=== PATIENT | male | born 1980 | race Caucasian/White ===

== ENCOUNTER 2016-06-02 12:44 | Emergency (ER) | payer BC, OTHER ==
[~2016-06-02] VITALS: Ht 180.3 cm; Wt 71.5 kg
[2016-06-02 12:48] VITALS: BP 116/71; PULSE 120; TEMP 36.5; O2SAT 96; Ht 180.3 cm; Wt 71.5 kg
[2016-06-02] MEDS ORDERED: PENI-82 PO (13:05)
[2016-06-02] MEDS ORDERED: OXYC-57 PO (13:05)
--- NOTE | 2016-06-02 13:06 | EMERGENCY ROOM VISIT NOTE ---
ED Visit Note First contact with patient: 12:52 CHIEF COMPLAINT: Pain in mouth HISTORY OF PRESENT ILLNESS: This 36-year-old male patient presented to the emergency department ambulatory with pain in the mouth for the past 3 days. The patient states that he has a bump between the left lower teeth and his tongue which is painful to touch. He rates the discomfort an 8/10. He states that he has had cavities in that area and is unsure if this is due to a cavity. He does not have a dentist. He has been taking ibuprofen at home without relief of the pain. He denies any difficulty swallowing or difficulty breathing. Denies facial swelling or fever. The patient denies any discharge from the mouth. REVIEW OF SYSTEMS: A 6 system review of systems was completed with positives and pertinent negatives listed in the HPI. ALLERGIES: No known drug allergies MEDICATIONS: No chronic medications PMH: No significant past medical history. SOCIAL HISTORY: The patient lives locally with family. He is a former smoker. PHYSICAL EXAM: Vitals are noted on the nurse's note and reviewed by myself. Vital signs stable. Temperature 36.5C orally. GENERAL: This is a 36-year-old male, in no acute distress, nondiaphoretic, well-developed well-nourished. Mouth: There is minimal swelling of the gums surrounding tooth 15. The gums are extremely tender to touch. No tenderness of the floor of the mouth. There is no fluctuance or evidence of abscess. The remainder of the pharynx and tonsils are without erythema, edema, or exudate. The airway is patent. There is no facial swelling, cervical or submandibular lymphadenopathy. The patient appears uncomfortable and in pain. The patient has overall average dental hygiene. EARS: External auditory canals clear, tympanic membranes pearly coley without erythema or effusion bilaterally. ED COURSE: The patient was evaluated as above. His pain seems to be dental in nature. He will be placed on penicillin and given a short course of pain medication. There is no tenderness of the floor of the mouth to suggest Stephen angina. The [place] prescription drug monitoring program was queried and no red flags were identified. The patient will return for any worsening or new/ concerning symptoms. He verbalized understanding and was discharged home in good condition. DIAGNOSIS: Dentalgia Problem List Medical Problems: (1) Kidney stones Status: Resolved (2) VSD (ventricular septal defect) Status: Resolved Current/Historical Medications Scheduled Penicillin V Potassium (Veetids), 500 MG PO QID Scheduled PRN Oxycodone/Acetaminophen 5MG/325MG (Percocet 5MG/325MG), 1-2 TABS PO Q4H PRN for Pain Allergies Coded Allergies: No Known Allergies (Unverified , 04/19/14) Vital Signs Date Time Temp Pulse Resp B/P Pulse Ox O2 Delivery O2 Flow Rate FiO2 06/02/16 12:48 36.5 120 20 116/71 96 Room Air Departure Information Impression Primary Impression: Pain, dental Dispostion Home / Self-Care Condition GOOD Prescriptions Oxycodone/Acetaminophen 5MG/325MG (PERCOCET 5MG/325MG) Tab 1-2 TABS PO Q4H Y for Pain, #15 TAB For Initial Treatment Prov: Aislinn Ricci PA-C 06/02/16 Penicillin V Potassium (Veetids) 500 Mg Tab 500 MG PO QID for 10 Days, #40 TAB Prov: Aislinn Ricci PA-C 06/02/16 Referrals Remington Waller DO (PCP) Patient Instructions My [facility] Additional Instructions You have been treated in the Emergency Department for Dental Pain. You have been prescribed Percocet to be used for pain control. This is a narcotic medication. You cannot drive or consume alcohol while on this medicine. This medicine should only be used for pain that cannot be controlled with zmjn-cow-jdrnocx pain medicines. You were prescribed penicillin to be taken as prescribed. This is an antibiotic. All antibiotics have the potential to cause diarrhea. Stop this medication and contact a medical provider if you were to develop any significant adverse side effects including: wheezing, shortness of breath, passing out, vomiting, or a diffuse rash. Always take antibiotics as directed and COMPLETE the ENTIRE course regardless of the improvement of your symptoms. For pain control, you can use the following bvlg-dfd-kuduosn medicines (if >12 yo): - Regular strength (325mg/tab) Tylenol (acetaminophen) 2 tabs every 4-6 hours as needed. Do not exceed 12 tablets in a 24 hour period. Avoid taking more than 4 grams (4000 mg) of Tylenol per day. This includes any other sources of acetaminophen you may take on a regular basis. - Regular strength (200 mg/tab) Advil (ibuprofen) 1-2 tabs every 4-6 hours as needed. Do not exceed a dose of 3200 mg per day. Refrain from smoking cigarettes or using chewing tobacco until you have been evaluated by your dentist. Keeping beverages lukewarm and consuming soft foods can decrease your pain. Warm compresses over the affected area may offer some relief. You MUST seek evaluation of your dental pain by a dentist following your visit to the Emergency Department. The Emergency Department is not capable of treating dental issues long-term. You should call your dentist as soon as possible to make an appointment for evaluation of your dental pain. Return to the emergency department if you develop the following symptoms despite treatment course outlined above: fever, intractable pain, increased redness, difficulty opening your mouth, swelling, or purulent discharge.
== END 2016-06-02 13:13 | disposition home or self-care (01) ==
LOC: C.EDB 12:45 → C.EDD 13:13
DX: K08.89 Other specified disorders of teeth and supporting structures (principal)

== ENCOUNTER 2016-11-22 08:21 | Emergency (ER) | payer OTHER ==
[~2016-11-22] VITALS: Ht 180.3 cm; Wt 74.1 kg
[~2016-11-22 08:21] MED LIST changes: -ACET-1311 PO; -BUPR150T5 PO; -HYDR-5688 PO; -KLN1X PO; -PENI500T2 PO
[2016-11-22 08:26] VITALS: TEMP 36.6; Ht 180.3 cm; Wt 74.1 kg
[2016-11-22] MEDS ORDERED: ACET-1311 PO (09:11)
[2016-11-22] MEDS ORDERED: KLN1X PO (09:11)
[2016-11-22] MEDS ORDERED: BUPR150T5 PO (09:11)
[2016-11-22] MEDS ORDERED: HYDR-5688 PO (09:57)
[2016-11-22] MEDS ORDERED: PENI500T2 PO (09:57)
--- NOTE | 2016-11-22 09:58 | EMERGENCY ROOM VISIT NOTE ---
ED Visit Note First contact with patient: 08:44 CHIEF COMPLAINT: Right lower jaw line pain 4-5 days HISTORY OF PRESENT ILLNESS: Patient is a 36-year-old white male who presents the emergency department for evaluation of pain along the inner aspect of his right lower jaw line. His symptoms started about 4 or 5 days ago. He notes a tender lump, which appears to be the source of his symptoms. He has tried using bkab-rxf-lkyuldm medications including acetaminophen and ibuprofen without relief. He denies any blood, pus or foul tasting fluid in his mouth. He is status post wisdom tooth extraction. He last saw a dentist about a year ago. He has had problems with his teeth in the past and has been seen here before for dental pain. He rates his discomfort and 9/10. Denies facial swelling or fever. The patient is status post wisdom teeth extraction. REVIEW OF SYSTEMS: Review of systems as per HPI. All other systems reviewed were negative. At least 6 systems reviewed. PMH: Electronic medical records are reviewed and summarized as above/below. See Problem List. SOCIAL HISTORY: Patient lives at home. Nonsmoker. He is employed PHYSICAL EXAM: Vital Signs: Reviewed Nurse's notes. CONSTITUTIONAL: Patient is a well-appearing 36-year-old white male who is awake and alert and in no acute distress. Vital signs are stable. EARS: Tympanic membranes intact, not inflamed, have normal contour. External canals clear. MOUTH: Overall the patient has fair dentition. Examination of the oropharynx show a erythematous, painful swelling on the inner aspect of the right inner jaw line. No fluctuance and no focal abscess is appreciated. Mucous membranes moist, no lesions, tongue and gums appear normal. THROAT: No pharyngeal injection, exudates, or tonsillar hypertrophy. Airway is patent. No trismus noted. FACE: No facial swelling is appreciated. No cellulitic changes. NECK: No lymphadenopathy. ED COURSE: The patient was seen and evaluated as above. He appears to have a localized dental abscess. There is no evidence for drainable abscess at this time, he does not have any physical exam findings to suspect Stephen's angina. He will be placed on course of Pen-Vee K, and was given a prescription for [place] for pain. He was encouraged to follow-up with his PCP and dentist for definitive care and management. Patient was reviewed in the [facility] Prescription Drug Monitoring Program. He has had 45 controlled substance prescriptions in the last 12 months, but these are his benzodiazepines, testosterone, Adderall and Ambien prescribed by his PCP, psychiatrist and supervisor general. He has only one prior narcotic prescription in the last 12 months. Medication reconciliation: I attest that I have personally reviewed the patient' s current medication list. Blood pressure screening : Patient was found to have normal blood pressure on screening and does not require follow-up. 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 (2) Flank pain Status: Resolved (3) Hematuria Status: Resolved (4) Kidney stones Status: Resolved (5) Low testosterone Status: Chronic (6) Pain, dental Status: Resolved (7) VSD (ventricular septal defect) Status: Resolved Surgical Problems: (1) History of orthopedic surgery Status: Resolved (2) History of tonsillectomy and adenoidectomy Status: Resolved (3) History of wisdom tooth extraction Status: Resolved Current/Historical Medications Scheduled Bupropion Hcl (Bupropion Hcl Xl), 150 MG PO QAM Penicillin V Potassium (Veetids), 500 MG PO QID Scheduled PRN Acetaminophen (Tylenol), 650 MG PO Q8 PRN for Pain Clonazepam (Clonazepam), 1 MG PO BID PRN for Anxiety Hydrocodone/Acetaminophen 5MG/325MG ([place] 5MG/325MG), 1-2 TABLETS PO Q4 PRN for Pain Allergies Coded Allergies: No Known Allergies (Unverified , 11/22/16) Vital Signs Date Time Temp Pulse Resp B/P (MAP) Pulse Ox O2 Delivery O2 Flow Rate FiO2 11/22/16 10:13 94 17 113/69 97 11/22/16 08:26 36.6 87 18 112/73 99 Room Air Departure Information Impression Primary Impression: Pain, dental Prescriptions Hydrocodone/Acetaminophen 5MG/325MG ([place] 5MG/325MG) Tab 1-2 TABLETS PO Q4 Y for Pain, #15 TAB For Initial Treatment Prov: Destiny Pearson PA 11/22/16 Penicillin V Potassium (VEETIDS) 500 Mg Tab 500 MG PO QID, #40 TAB Prov: Destiny Pearson PA 11/22/16 Referrals No Doctor, Assigned (PCP) Patient Instructions My [facility] Additional Instructions Penicillin 500mg: Take one pill four times daily for 10 days for your dental infection. All antibiotics can cause diarrhea. If this occurs and you feel worse or it does not resolve in 1-2 days follow up with your doctor or return to the Emergency Department as this could be signs of serious underlying problems. Any medication can cause an allergic reaction, stop the pills immediately and return to the ER for rash, hives, breathing difficulties, or swelling. Ibuprofen(Motrin, Advil) may be used for fever or pain. Use 600mg every six hours as needed. Take with food. Avoid using more than 2400mg in a 24 hour period. Do not use 2400mg per day for more than three consecutive days without physician direction. Prolonged inappropriate use can lead to stomach upset or ulcers. (AND/OR) Acetaminophen(Tylenol) may be used for fever or pain. Use 1000mg every six hours as needed. Avoid using more than 4000mg in a 24 hour period. Hydrocodone/Acetaminophen ([place]) 5/325 mg: Take 1-2 pills every four hours for breakthrough pain. Avoid alcohol, operating machinery or dangerous equipment, working on ladders or roofs, DRIVING, or situations where being under the influence may be dangerous. It is recommended to use an ntgu-ina-onhquga stool softener such as Colace, 100mg twice daily while taking this medication to avoid constipation. Saltwater gargles after meals and before bedtime. Soft foods. Orajel/Anbesol/clove oil as needed for discomfort. Followup with your dentist for definitive management. You may also follow up with your primary care physician for pain/care management until you can be seen by your dentist.
[2016-11-22 10:13] VITALS: BP 113/69; PULSE 94; O2SAT 97
== END 2016-11-22 10:14 | disposition home or self-care (01) ==
LOC: C.EDB 08:23
DX: K08.89 Other specified disorders of teeth and supporting structures (principal); Z87.442 Personal history of urinary calculi; Z98.818 Other dental procedure status; Z90.89 Acquired absence of other organs; Z98.890 Other specified postprocedural states

== ENCOUNTER → 2016-11-22 | Outpatient (CLI) | payer OTHER ==
[~2016-11-22] MED LIST: ACET-1311 PO; BUPR150T5 PO; HYDR-5688 PO; KLN1X PO; OXYC-57 PO; PENI500T2 PO
== END | disposition home or self-care (01) ==
LOC: C.LAB 10:50
PROVIDERS: ATTEND Internal Medicine Endocrinology, Diabetes & Metabolism
DX: E23.0 Hypopituitarism (principal)